=== PATIENT | male | born 1945 | race Caucasian/White ===

== ENCOUNTER 2018-07-23 10:22 | Observation (INO) | payer MEDICARE, BC ==
--- NOTE | 2018-07-23 10:55 | EDM.PDOC ---
ED HPI GENERAL MEDICAL PROBLEM - General Chief Complaint: Gastrointestinal Problem Stated Complaint: BLOOD IN STOOL SENT BY DR WOODS Time Seen by Provider: 07/23/18 10:44 Source of Information: Reports: Patient, Provider (Dr. Arango), RN Notes Reviewed History Limitations: Reports: No Limitations - History of Present Illness INITIAL COMMENTS - FREE TEXT/NARRATIVE: I was called by Dr. Arango, who informed me that he was sending the patient to the ED to be admitted to the hospital. The patient presented to his office with a 3-day history of bright red blood per rectum. He stated that the patient had been seen at the walk-in clinic on 07/21/2018, but that nothing had been done. The patient's blood pressure in Dr. Arango's office was good. The patient is on Coumadin for a mechanical mitral valve replacement and paroxysmal atrial fibrillation. Hemoglobin today is 11.5. Dr. Arango would like the patient to be admitted overnight, possibly given vitamin K with Lovenox for anticoagulation, then undergo a colonoscopy in the morning. The patient largely confirms the story provided by Dr. Arango, telling me that he developed bloody diarrhea on 07/20/2018, at that he has not had any bloody bowel movements since yesterday morning, 07/22/2018. All of his episodes have been painless, and he has not suffered any lightheadedness, even when upright. No prior similar symptoms. No recent fever. No recent urinary symptoms. The patient has never undergone a colonoscopy. Dr. Arango had told me that the patient had refused prior recommendations. Paperwork sent over from Dr. Arango's office includes a CBC with a WBC of 12.9, H/H of 11.5/35.5 and Plts 190. A BMP had a Na of 145, K 4.0, Cl 106, HCO3 29, Glu 128. The patient's PCP is Dr. Young Arango. - Related Data Allergies Allergy/AdvReac Type Severity Reaction Status Date / Time No Known Allergies Allergy Verified 07/23/18 10:34 Home Meds: Home Meds Allopurinol [Zyloprim] 300 mg PO DAILY 07/23/18 [History] Aspirin [Halfprin] 81 mg PO DAILY 07/23/18 [History] Diltiazem HCl [Cartia Xt] 120 mg PO BID 07/23/18 [History] Furosemide 40 mg PO BID 07/23/18 [History] Lisinopril 10 mg PO BID 07/23/18 [History] Metoprolol Tartrate 12.5 mg PO BID 07/23/18 [History] Warfarin [Coumadin] 2.5 mg PO ASDIRECTED 07/23/18 [History] Warfarin [Coumadin] 5 mg PO DAILY 07/23/18 [History] atorvaSTATin [Lipitor] 5 mg PO DAILY 07/23/18 [History] metFORMIN [Glucophage XR] 500 mg PO DAILY 07/23/18 [History] Past Medical History Cardiovascular History: Reports: Afib (paroxysmal), High Cholesterol, Hypertension, Other (See Below) (Rheumatic fever as a child) Musculoskeletal History: Reports: Gout (suspected, not confirmed) Endocrine/Metabolic History: Reports: Diabetes, Type II - Past Surgical History HEENT Surgical History: Reports: Cataract Surgery Cardiovascular Surgical History: Reports: Valve Replacement (mechanical mitral valve 11/01/2011), Other (See Below) (Tricuspid valve annulus repair) Social & Family History - Tobacco Use Smoking Status *Q: Former Smoker Years of Tobacco use: 41 Packs/Tins Daily: 2 Month/Year Tobacco Last Used: Quit 2004 - Alcohol Use Alcohol Use History: Yes Alcohol Use Frequency: Socially - Recreational Drug Use Recreational Drug Use: No - Living Situation & Occupation Living situation: Reports: , with Spouse Occupation: Retired ED ROS GENERAL - Review of Systems Review Of Systems: ROS reveals no pertinent complaints other than HPI. ED EXAM, GI/ABD - Physical Exam Exam: See Below Exam Limited By: No Limitations General Appearance: Alert, WD/WN, No Apparent Distress Eyes: Bilateral: Normal Appearance, EOMI Ears: Normal External Exam, Hearing Grossly Normal Nose: Normal Inspection Throat/Mouth: Normal Inspection, Normal Lips, Normal Voice, No Airway Compromise Head: Atraumatic, Normocephalic Neck: Normal Inspection, Full Range of Motion Respiratory/Chest: No Respiratory Distress, Lungs Clear, Normal Breath Sounds, No Accessory Muscle Use Cardiovascular: Normal Peripheral Pulses, Regular Rate, Rhythm, No Edema, No Gallop, No JVD, No Murmur, No Rub GI/Abdominal Exam: Normal Bowel Sounds, Soft, Non-Tender, No Organomegaly, No Distention, No Abnormal Bruit, No Mass (Male) Exam: Deferred Rectal (Males) Exam: Normal Rectal Tone, Bloody Stool (maroon), Heme + Stool, Hemorrhoids (small, non-thrombosed) Back Exam: Normal Inspection, Full Range of Motion, NT Extremities: Normal Inspection, Normal Range of Motion, No Pedal Edema, Normal Capillary Refill Neurological: Alert, Oriented, Normal Cognition, No Motor/Sensory Deficits Psychiatric: Normal Affect Skin Exam: Warm, Dry, Intact, Normal Color, No Rash Course - Vital Signs Last Recorded V/S: Last Vital Signs Temp 36.7 C 07/23/18 10:35 Pulse 52 L 07/23/18 10:35 Resp 16 07/23/18 10:35 BP 134/74 07/23/18 10:35 Pulse Ox 95 07/23/18 10:35 Orthostatic Blood Pressure [ 121/66 Standing] Orthostatic Blood Pressure [ 134/74 Sitting] - Orders/Labs/Meds Orders: Active Orders 24 hr Category Date Time Status Orthostatic Vital Signs [RC] STAT Care 07/23/18 10:49 Active - Re-Assessments/Exams Free Text/Narrative Re-Assessment/Exam: 07/23/18 10:55 The patient is not orthostatic. 07/23/18 11:[address] Bourne is on rounds. She will come by the ED once they are finished. 07/23/18 11:[address] Bourne here in the ED at 11:45. She accepted the patient for placement into observation with telemetry. Departure - Departure Time of Disposition: 11:48 Disposition: Refer to Observation Condition: Fair Clinical Impression: Lower GI bleed - Discharge Information *PRESCRIPTION DRUG MONITORING PROGRAM REVIEWED*: Not Applicable *COPY OF PRESCRIPTION DRUG MONITORING REPORT IN PATIENT EVELYN: Not Applicable Referrals: Garry Arango MD [Primary Care Provider] - Forms: ED Department Discharge - My Orders Last 24 Hours: My Active Orders 07/23/18 10:49 Orthostatic Vital Signs [RC] STAT - Assessment/Plan Last 24 Hours: My Active Orders 07/23/18 10:49 Orthostatic Vital Signs [RC] STAT
--- NOTE | 2018-07-23 12:59 | PCM.HP ---
H&P History of Present Illness - General Date of Service: 07/23/18 Admit Problem/Dx: Admission Diagnosis/Problem Admission Diagnosis/Problem Gastrointestinal hemorrhage Source of Information: Provider History Limitations: Reports: No Limitations - History of Present Illness Initial Comments - Free Text/Narative: 72 year old male seen in the clinic twice this week with a complaint of bloody diarrhea. He is on Coumadin for a mechanical MV and PAF. He has had dizziness , lightheadedness, but no CP or CP. The patient has declined a colonoscopy in the past. Paperwork sent over from Dr. Arango's office includes a CBC with a WBC of 12.9, H/H of 11.5/35.5 and Plts 190. A BMP had a Na of 145, K 4.0, Cl 106 , HCO3 29, Glu 128. The patient's PCP is Dr. Young Arango; full code. A gen surg consult was requested. He will be on a clear liquid diet/Golytely prep for colonoscopy TBD on 07/24/18. Symptom Onset Date: 07/20/18 Duration of Symptoms: Reports: Day(s):, Getting Worse Location: Reports: Abdomen Quality: Reports: Same as Previous Episode Severity: Moderate Improves with: Reports: Medication Worsens with: Reports: None Associated Symptoms: Reports: Weakness - Related Data Allergies/Adverse Reactions: Allergies Allergy/AdvReac Type Severity Reaction Status Date / Time No Known Allergies Allergy Verified 07/23/18 15:01 Home Medications: Home Meds Allopurinol [Zyloprim] 300 mg PO DAILY 07/23/18 [History] Aspirin [Halfprin] 81 mg PO DAILY 07/23/18 [History] Diltiazem HCl [Cartia Xt] 120 mg PO BID 07/23/18 [History] Furosemide 40 mg PO BID 07/23/18 [History] Lisinopril 10 mg PO BID 07/23/18 [History] Metoprolol Tartrate 12.5 mg PO BID 07/23/18 [History] Potassium Chloride 10 meq PO DAILY 07/23/18 [History] Warfarin Sodium [Jantoven] 5 mg PO ASDIRECTED 07/23/18 [History] Warfarin Sodium [Jantoven] 7.5 mg PO ASDIRECTED 07/23/18 [History] atorvaSTATin [Lipitor] 5 mg PO DAILY 07/23/18 [History] metFORMIN [Glucophage XR] 500 mg PO DAILY 07/23/18 [History] Past Medical History HEENT History: Reports: Cataract, Hard of Hearing, Impaired Vision Cardiovascular History: Reports: Afib (paroxysmal), High Cholesterol, Hypertension, Other (See Below) (Rheumatic fever as a child) Musculoskeletal History: Reports: Gout (suspected, not confirmed) Endocrine/Metabolic History: Reports: Diabetes, Type II - Past Surgical History HEENT Surgical History: Reports: Cataract Surgery Cardiovascular Surgical History: Reports: Valve Replacement (mechanical mitral valve 11/01/2011), Other (See Below) (Tricuspid valve annulus repair) Social & Family History - Tobacco Use Smoking Status *Q: Former Smoker Years of Tobacco use: 41 Packs/Tins Daily: 2 Used Tobacco, but Quit: Yes Month/Year Tobacco Last Used: Quit 2004 - Caffeine Use Caffeine Use: Reports: Coffee - Recreational Drug Use Recreational Drug Use: No - Living Situation & Occupation Living situation: Reports: , with Spouse Occupation: Retired H&P Review of Systems - Review of Systems: Review Of Systems: See Below General: Reports: Weakness HEENT: Reports: No Symptoms Pulmonary: Reports: No Symptoms Cardiovascular: Reports: Palpitations, Lightheadedness Gastrointestinal: Reports: Bloody Stool Genitourinary: Reports: No Symptoms Musculoskeletal: Reports: No Symptoms Skin: Reports: No Symptoms Psychiatric: Reports: No Symptoms Neurological: Reports: Dizziness Hematologic/Lymphatic: Reports: Easy Bleeding Immunologic: Reports: No Symptoms Exam - Exam Exam: See Below - Vital Signs Vital Signs: Last Vital Signs Temp 36.7 C 07/23/18 10:35 Pulse 52 L 07/23/18 10:35 Resp 16 07/23/18 10:35 BP 134/74 07/23/18 10:35 Pulse Ox 95 07/23/18 10:35 Orthostatic Blood Pressure [ 121/66 Standing] Orthostatic Blood Pressure [ 134/74 Sitting] - Exam Quality Assessment: DVT Prophylaxis General: Alert, Oriented, Cooperative HEENT: Conjunctiva Clear, EOMI, Hearing Intact, Nares Patent, Normal Nasal Septum, Pupils Equal, Pupils Reactive, PERRLA Neck: Trachea Midline Lungs: Normal Respiratory Effort Cardiovascular: Regular Rate GI/Abdominal Exam: Normal Bowel Sounds, Soft, Non-Tender, No Organomegaly, No Distention (Male) Exam: Deferred Rectal (Males) Exam: Deferred Back Exam: Normal Inspection Extremities: Normal Inspection, Non-Tender, Normal Capillary Refill Skin: Warm Neurological: Cranial Nerves Intact Neuro Extensive - Mental Status: Alert, Oriented x3, Normal Mood/Affect, Normal Cognition, Memory Intact Neuro Extensive - Motor, Sensory, Reflexes: CN II-XII Intact Psychiatric: Alert Problem List Initiated/Reviewed/Updated: Yes Orders Last 24hrs: Active Orders 24 hr Category Date Time Status Admission Status [Patient Status] [ADT] Routine ADT 07/23/18 12:16 Active Assessment/Plan Comment:: Impression: Acute GI bleed, on Coumadin for MVR/A Fib Chronic HTN HLD DM type II Plan: NPO after MN Clear liquids Golytely Home meds Daily Labs Gen Surg consult DVT/GI prophylaxis Obs with tele
[2018-07-23] MEDS ORDERED: Polyethylene Glycol/Electrolytes 4,000 ML Bottle PO ONE ×2 (13:01→17:00)
[2018-07-23] MEDS ORDERED: Temazepam 7.5 MG Cap PO PRN (19:49)
[2018-07-23] MEDS ORDERED: 50% Dextrose in Water 50 ML Syringe IVPUSH PRN (19:59)
[2018-07-23] MEDS: Metoprolol Tartrate 25 MG Tab*PT OWN MED PO SCH (20:52)
[2018-07-23] MEDS: CARTIA XT 120 MG PO SCH (20:52)
[2018-07-23] MEDS ORDERED: Diltiazem 120 MG Cap.CD PO SCH (21:00)
[2018-07-23] MEDS ORDERED: Phytonadione ORAL 2.5mg/2.5ml Soln Simple Syrup U/D PO ONE (21:33)
[2018-07-23] MEDS: Insulin Lispro 100 Units/ML 3 ML Vial SUBCUT SCH (22:00)
[2018-07-24] MEDS: Insulin Lispro 100 Units/ML 3 ML Vial SUBCUT SCH ×4 (07:08→22:28)
[2018-07-24 07:13] LABS: HEMOGLOBIN A1C 6.3 % (4.50-6.20)
[2018-07-24] MEDS ORDERED: Lidocaine 1% 6 ML ONE (08:09)
[2018-07-24] MEDS ORDERED: Propofol 200 MG/20 ML SDV ONE (08:10)
[2018-07-24] MEDS ORDERED: Phytonadione ORAL 2.5mg/2.5ml Soln Simple Syrup U/D PO ONE (09:11)
--- NOTE | 2018-07-24 09:26 | PCM.PREANE ---
Preanesthetic Assessment - Anesthesia/Transfusion/Family Hx Anesthesia History: Prior Anesthesia Without Reaction Family History of Anesthesia Reaction: No Transfusion History: No Prior Transfusion(s) Intubation History: Unknown - Review of Systems General: No Symptoms Pulmonary: No Symptoms (quit smoking 2004) Cardiovascular: No Symptoms (History of HTN, paroxysmal A-Fib, Mechanical valve replacement 2011-on coumadin) Gastrointestinal: Diarrhea (bloody stools(diarrhea on Saturday) 07/20/2018) Neurological: No Symptoms (history of gout) Other: Reports: Easy Bleeding, Easy Bruising, Diabetes (am blood [id number]) - Physical Assessment NPO Status Date: 07/23/18 NPO Status Time: 23:59 Pulse: 67 O2 Sat by Pulse Oximetry: 90 Respiratory Rate: 18 Blood Pressure: 135/79 Temperature: 36.5 C Vital Signs: Last Vital Signs Temp 36.5 C 07/24/18 04:59 Pulse 67 07/24/18 04:59 Resp 18 07/24/18 04:59 BP 135/79 07/24/18 04:59 Pulse Ox 90 L 07/24/18 04:59 Orthostatic Blood Pressure [ 121/66 Standing] Orthostatic Blood Pressure [ 134/74 Sitting] Height: 1.83 m Weight: 104.689 kg ASA Class: 3 Mental Status: Alert & Oriented x3 Airway Class: Mallampati = 2 Dentition: Reports: Dentures (upper) Thyro-Mental Finger Breadths: 3 Mouth Opening Finger Breadths: 3 ROM/Head Extension: Full Lungs: Clear to Auscultation, Normal Respiratory Effort Cardiovascular: Regular Rate, Regular Rhythm, No Murmurs - Lab Values: Laboratory Last Values WBC 7.12 K/mm3 (4.23-9.07) 07/24/18 06:30 RBC 2.92 M/mm3 (4.63-6.08) L 07/24/18 06:30 Hgb 9.0 gm/L (13.7-17.5) L 07/24/18 06:30 Hct 28.8 % (40.1-51.0) L 07/24/18 06:30 MCV 98.6 fl (79.0-92.2) H 07/24/18 06:30 MCH 30.8 pg (25.7-32.2) 07/24/18 06:30 MCHC 31.3 g/dl (32.2-35.5) L 07/24/18 06:30 RDW Std Deviation 53.7 fL (35.1-43.9) H 07/24/18 06:30 Plt Count 169 K/mm3 (163-337) 07/24/18 06:30 MPV 9.1 fl (9.4-12.3) L 07/24/18 06:30 Neut % (Auto) 60.0 % (34.0-67.9) 07/24/18 06:30 Lymph % (Auto) 16.7 % (21.8-53.1) L 07/24/18 06:30 [place] % (Auto) 7.3 % (5.3-12.2) 07/24/18 06:30 Eos % (Auto) 14.9 (0.8-7.0) H 07/24/18 06:30 Baso % (Auto) 0.8 % (0.1-1.2) 07/24/18 06:30 Neut # (Auto) 4.27 K/mm3 (1.78-5.38) 07/24/18 06:30 Lymph # (Auto) 1.19 K/mm3 (1.32-3.57) L 07/24/18 06:30 [place] # (Auto) 0.52 K/mm3 (0.30-0.82) 07/24/18 06:30 Eos # (Auto) 1.06 K/mm3 (0.04-0.54) H 07/24/18 06:30 Baso # (Auto) 0.06 K/mm3 (0.01-0.08) 07/24/18 06:30 PT 37.4 SECONDS (9.5-12.1) H 07/24/18 06:30 INR 3.52 07/24/18 06:30 Sodium 145 mEq/L (136-145) 07/24/18 06:30 Potassium 3.7 mEq/L (3.5-5.1) 07/24/18 06:30 Chloride 108 mEq/L (98-107) H 07/24/18 06:30 Carbon Dioxide 27 mEq/L (21-32) 07/24/18 06:30 Anion Gap 13.7 (5-15) 07/24/18 06:30 BUN 18 mg/dL (7-18) 07/24/18 06:30 Creatinine 1.0 mg/dL (0.7-1.3) 07/24/18 06:30 Est Cr Clr Drug Dosing 75.44 mL/min 07/24/18 06:30 Estimated GFR (MDRD) > 60 mL/min (>60) 07/24/18 06:30 BUN/Creatinine Ratio 18.0 (14-18) 07/24/18 06:30 Glucose 126 mg/dL (80-115) H 07/24/18 06:30 POC Glucose 122 mg/dL (80-115) H 07/24/18 06:38 Hemoglobin A1c 6.30 % (4.50-6.20) H 07/24/18 06:30 Lactic Acid 0.8 mmol/L (0.4-2.0) 07/24/18 06:30 Calcium 8.2 mg/dL (8.5-10.1) L 07/24/18 06:30 Magnesium 2.0 mg/dl (1.8-2.4) 07/24/18 06:30 C-Reactive Protein 1.1 mg/dL (<1.0) H* 07/24/18 06:30 Labs reviewed and noted and within acceptable ranges to proceed with MAC anesthetic (Surgeon notified of elevated PT/INR and agrees to proceed. - Allergies Allergies/Adverse Reactions: Allergies Allergy/AdvReac Type Severity Reaction Status Date / Time No Known Allergies Allergy Verified 07/23/18 15:01 - Anesthesia Plan Pre-Op Medication Ordered: Beta Nima Beta Nima: Metoprolol Med Last Dose Date: 07/24/18 Med Last Dose Time: 09:46 - Acknowledgements Anesthesia Type Planned: MAC Pt an Appropriate Candidate for the Planned Anesthesia: Yes Alternatives and Risks of Anesthesia Discussed w Pt/Guardian: Yes Pt/Guardian Understands and Agrees with Anesthesia Plan: Yes PreAnesthesia Questionnaire HEENT History: Reports: Cataract, Hard of Hearing, Impaired Vision Cardiovascular History: Reports: Afib (paroxysmal), High Cholesterol, Hypertension, Other (See Below) (Rheumatic fever as a child) Musculoskeletal History: Reports: Gout (suspected, not confirmed) Endocrine/Metabolic History: Reports: Diabetes, Type II - Infectious Disease History Infectious Disease History: Reports: Chicken Pox, Measles, Mumps - Past Surgical History HEENT Surgical History: Reports: Cataract Surgery Cardiovascular Surgical History: Reports: Valve Replacement (mechanical mitral valve 11/01/2011), Other (See Below) (Tricuspid valve annulus repair) - SUBSTANCE USE Smoking Status *Q: Former Smoker Tobacco Use Within Last Twelve Months: Cigarettes Recreational Drug Use History: No - HOME MEDS Home Medications: Home Meds Allopurinol [Zyloprim] 300 mg PO DAILY 07/23/18 [History] Aspirin [Halfprin] 81 mg PO DAILY 07/23/18 [History] Diltiazem HCl [Cartia Xt] 120 mg PO BID 07/23/18 [History] Furosemide 40 mg PO BID 07/23/18 [History] Lisinopril 10 mg PO BID 07/23/18 [History] Metoprolol Tartrate 12.5 mg PO BID 07/23/18 [History] Potassium Chloride 10 meq PO DAILY 07/23/18 [History] Warfarin Sodium [Jantoven] 5 mg PO ASDIRECTED 07/23/18 [History] Warfarin Sodium [Jantoven] 7.5 mg PO ASDIRECTED 07/23/18 [History] atorvaSTATin [Lipitor] 5 mg PO DAILY 07/23/18 [History] metFORMIN [Glucophage XR] 500 mg PO DAILY 07/23/18 [History] - CURRENT (IN HOUSE) MEDS Current Meds: Current Medications Allopurinol (Zyloprim) 300 mg PO DAILY [facility] Dextrose/Water (Dextrose 50% In Water) 50 ml IVPUSH ASDIRECTED PRN PRN Reason: Hypoglycemia Insulin Human Lispro (Humalog) 0 unit SUBCUT QIDACANDBED [facility]; Protocol Last Admin: 07/24/18 07:08 Dose: Not Given Metoprolol Tartrate (Lopressor) 12.5 mg PO BID [facility] Last Admin: 07/23/18 20:52 Dose: 12.5 mg Cartia Xt 120 Mg (Caps*Pt Own Med*) 0 each PO BID [facility] Last Admin: 07/23/18 20:52 Dose: 120 each Phytonadione (Aquamephyton) 5 mg PO ONETIME ONE Stop: 07/24/18 09:12 Temazepam (Restoril) 7.5 mg PO BEDTIME PRN PRN Reason: Insomnia Discontinued Medications Diltiazem HCl (Cardizem Cd) 120 mg PO BID [facility] Lidocaine HCl (Xylocaine-Mpf 1%) Confirm Administered Dose 6 mls @ as directed .ROUTE .STK-MED ONE Stop: 07/24/18 08:10 Phytonadione (Aquamephyton) 5 mg PO ONETIME ONE Stop: 07/23/18 21:34 Last Admin: 07/23/18 21:56 Dose: 5 mg Polyethylene Glycol/Electrolytes (Golytely) 4,000 ml PO ONETIME ONE Stop: 07/23/18 13:02 Last Admin: 07/23/18 16:19 Dose: Not Given Polyethylene Glycol/Electrolytes (Golytely) 4,000 ml PO ONETIME ONE Stop: 07/23/18 17:01 Last Admin: 07/23/18 17:58 Dose: 4,000 ml Propofol (Diprivan 20 Ml) Confirm Administered Dose 200 mg .ROUTE .STK-MED ONE Stop: 07/24/18 08:11
[2018-07-24] MEDS: ALLOPURINOL 300 MG PO SCH (09:39)
[2018-07-24] MEDS: Metoprolol Tartrate 25 MG Tab*PT OWN MED PO SCH ×2 (09:46→22:21)
[2018-07-24] MEDS: CARTIA XT 120 MG PO SCH ×2 (09:47→22:25)
--- NOTE | 2018-07-24 12:17 | PCM.PN ---
- General Info Date of Service: 07/24/18 Functional Status: Reports: Tolerating Diet, Urinating - Review of Systems General: Reports: No Symptoms HEENT: Reports: No Symptoms Pulmonary: Reports: No Symptoms Cardiovascular: Reports: No Symptoms Gastrointestinal: Reports: No Symptoms Genitourinary: Reports: No Symptoms Musculoskeletal: Reports: No Symptoms Skin: Reports: No Symptoms Neurological: Reports: No Symptoms Psychiatric: Reports: No Symptoms - Patient Data Vitals - Most Recent: Last Vital Signs Temp 36.5 C 07/24/18 10:22 Pulse 67 07/24/18 10:22 Resp 18 07/24/18 10:22 BP 135/79 07/24/18 10:22 Pulse Ox 90 L 07/24/18 10:22 Orthostatic Blood Pressure [ 121/66 Standing] Orthostatic Blood Pressure [ 134/74 Sitting] Weight - Most Recent: 104.689 kg I&O - Last 24 Hours: Intake & Output 07/23/18 07/24/18 07/24/18 22:59 06:59 14:59 Intake Total 800 4500 Output Total 700 4425 Balance 100 75 Lab Results Last 24 Hours: Laboratory Results - last 24 hr 07/23/18 07/23/18 07/24/18 Range/Units 20:44 21:59 06:30 WBC 7.12 (4.23-9.07) K/mm3 RBC 2.92 L (4.63-6.08) M/mm3 Hgb 9.0 L (13.7-17.5) gm/L Hct 28.8 L (40.1-51.0) % MCV 98.6 H (79.0-92.2) fl MCH 30.8 (25.7-32.2) pg MCHC 31.3 L (32.2-35.5) g/dl RDW Std Deviation 53.7 H (35.1-43.9) fL Plt Count 169 (163-337) K/mm3 MPV 9.1 L (9.4-12.3) fl Neut % (Auto) 60.0 (34.0-67.9) % Lymph % (Auto) 16.7 L (21.8-53.1) % [place] % (Auto) 7.3 (5.3-12.2) % Eos % (Auto) 14.9 H (0.8-7.0) Baso % (Auto) 0.8 (0.1-1.2) % Neut # (Auto) 4.27 (1.78-5.38) K/mm3 Lymph # (Auto) 1.19 L (1.32-3.57) K/mm3 [place] # (Auto) 0.52 (0.30-0.82) K/mm3 Eos # (Auto) 1.06 H (0.04-0.54) K/mm3 Baso # (Auto) 0.06 (0.01-0.08) K/mm3 PT 38.7 H (9.5-12.1) SECONDS INR 3.64 Sodium (136-145) mEq/L Potassium (3.5-5.1) mEq/L Chloride (98-107) mEq/L Carbon Dioxide (21-32) mEq/L Anion Gap (5-15) BUN (7-18) mg/dL Creatinine (0.7-1.3) mg/dL Est Cr Clr Drug Dosing mL/min Estimated GFR (MDRD) (>60) mL/min BUN/Creatinine Ratio (14-18) Glucose (80-115) mg/dL POC Glucose 140 H (80-115) mg/dL Hemoglobin A1c (4.50-6.20) % Lactic Acid (0.4-2.0) mmol/L Calcium (8.5-10.1) mg/dL Magnesium (1.8-2.4) mg/dl C-Reactive Protein (<1.0) mg/dL 07/24/18 07/24/18 07/24/18 Range/Units 06:30 06:30 06:30 WBC (4.23-9.07) K/mm3 RBC (4.63-6.08) M/mm3 Hgb (13.7-17.5) gm/L Hct (40.1-51.0) % MCV (79.0-92.2) fl MCH (25.7-32.2) pg MCHC (32.2-35.5) g/dl RDW Std Deviation (35.1-43.9) fL Plt Count (163-337) K/mm3 MPV (9.4-12.3) fl Neut % (Auto) (34.0-67.9) % Lymph % (Auto) (21.8-53.1) % [place] % (Auto) (5.3-12.2) % Eos % (Auto) (0.8-7.0) Baso % (Auto) (0.1-1.2) % Neut # (Auto) (1.78-5.38) K/mm3 Lymph # (Auto) (1.32-3.57) K/mm3 [place] # (Auto) (0.30-0.82) K/mm3 Eos # (Auto) (0.04-0.54) K/mm3 Baso # (Auto) (0.01-0.08) K/mm3 PT 37.4 H (9.5-12.1) SECONDS INR 3.52 Sodium 145 (136-145) mEq/L Potassium 3.7 (3.5-5.1) mEq/L Chloride 108 H (98-107) mEq/L Carbon Dioxide 27 (21-32) mEq/L Anion Gap 13.7 (5-15) BUN 18 (7-18) mg/dL Creatinine 1.0 (0.7-1.3) mg/dL Est Cr Clr Drug Dosing 75.44 mL/min Estimated GFR (MDRD) > 60 (>60) mL/min BUN/Creatinine Ratio 18.0 (14-18) Glucose 126 H (80-115) mg/dL POC Glucose (80-115) mg/dL Hemoglobin A1c (4.50-6.20) % Lactic Acid 0.8 (0.4-2.0) mmol/L Calcium 8.2 L (8.5-10.1) mg/dL Magnesium 2.0 (1.8-2.4) mg/dl C-Reactive Protein 1.1 H* (<1.0) mg/dL 07/24/18 07/24/18 07/24/18 Range/Units 06:30 06:38 11:08 WBC (4.23-9.07) K/mm3 RBC (4.63-6.08) M/mm3 Hgb (13.7-17.5) gm/L Hct (40.1-51.0) % MCV (79.0-92.2) fl MCH (25.7-32.2) pg MCHC (32.2-35.5) g/dl RDW Std Deviation (35.1-43.9) fL Plt Count (163-337) K/mm3 MPV (9.4-12.3) fl Neut % (Auto) (34.0-67.9) % Lymph % (Auto) (21.8-53.1) % [place] % (Auto) (5.3-12.2) % Eos % (Auto) (0.8-7.0) Baso % (Auto) (0.1-1.2) % Neut # (Auto) (1.78-5.38) K/mm3 Lymph # (Auto) (1.32-3.57) K/mm3 [place] # (Auto) (0.30-0.82) K/mm3 Eos # (Auto) (0.04-0.54) K/mm3 Baso # (Auto) (0.01-0.08) K/mm3 PT (9.5-12.1) SECONDS INR Sodium (136-145) mEq/L Potassium (3.5-5.1) mEq/L Chloride (98-107) mEq/L Carbon Dioxide (21-32) mEq/L Anion Gap (5-15) BUN (7-18) mg/dL Creatinine (0.7-1.3) mg/dL Est Cr Clr Drug Dosing mL/min Estimated GFR (MDRD) (>60) mL/min BUN/Creatinine Ratio (14-18) Glucose (80-115) mg/dL POC Glucose 122 H 120 H (80-115) mg/dL Hemoglobin A1c 6.30 H (4.50-6.20) % Lactic Acid (0.4-2.0) mmol/L Calcium (8.5-10.1) mg/dL Magnesium (1.8-2.4) mg/dl C-Reactive Protein (<1.0) mg/dL Med Orders - Current: Current Medications Allopurinol (Zyloprim) 300 mg PO DAILY [facility] Last Admin: 07/24/18 09:39 Dose: Not Given Dextrose/Water (Dextrose 50% In Water) 50 ml IVPUSH ASDIRECTED PRN PRN Reason: Hypoglycemia Insulin Human Lispro (Humalog) 0 unit SUBCUT QIDACANDBED [facility]; Protocol Last Admin: 07/24/18 07:08 Dose: Not Given Metoprolol Tartrate (Lopressor) 12.5 mg PO BID [facility] Last Admin: 07/24/18 09:46 Dose: 12.5 mg Cartia Xt 120 Mg (Caps*Pt Own Med*) 0 each PO BID [facility] Last Admin: 07/24/18 09:47 Dose: 1 each Temazepam (Restoril) 7.5 mg PO BEDTIME PRN PRN Reason: Insomnia Discontinued Medications Diltiazem HCl (Cardizem Cd) 120 mg PO BID [facility] Lidocaine HCl (Xylocaine-Mpf 1%) Confirm Administered Dose 6 mls @ as directed .ROUTE .STK-MED ONE Stop: 07/24/18 08:10 Phytonadione (Aquamephyton) 5 mg PO ONETIME ONE Stop: 07/23/18 21:34 Last Admin: 07/23/18 21:56 Dose: 5 mg Phytonadione (Aquamephyton) 5 mg PO ONETIME ONE Stop: 07/24/18 09:12 Last Admin: 07/24/18 09:45 Dose: 5 mg Polyethylene Glycol/Electrolytes (Golytely) 4,000 ml PO ONETIME ONE Stop: 07/23/18 13:02 Last Admin: 07/23/18 16:19 Dose: Not Given Polyethylene Glycol/Electrolytes (Golytely) 4,000 ml PO ONETIME ONE Stop: 07/23/18 17:01 Last Admin: 07/23/18 17:58 Dose: 4,000 ml Propofol (Diprivan 20 Ml) Confirm Administered Dose 200 mg .ROUTE .STK-MED ONE Stop: 07/24/18 08:11 - Exam Quality Assessment: DVT Prophylaxis General: Alert, Oriented, Cooperative, No Acute Distress HEENT: Pupils Equal, Pupils Reactive, EOMI Neck: No JVD Lungs: Clear to Auscultation, Normal Respiratory Effort Cardiovascular: Regular Rate, Murmurs GI/Abdominal Exam: Normal Bowel Sounds, Soft, Non-Tender, No Organomegaly, No Distention (Male) Exam: Deferred Back Exam: Normal Inspection Extremities: Normal Inspection, Non-Tender, Normal Capillary Refill Skin: Warm Neurological: No New Focal Deficit Psy/Mental Status: Alert, Normal Affect, Normal Mood - Problem List Review Problem List Initiated/Reviewed/Updated: Yes - My Orders Last 24 Hours: My Active Orders 07/23/18 13:22 Consult to Physician [CONS] Routine 07/23/18 13:23 Notify Provider Consults [RC] ASDIRECTED 07/23/18 15:03 Resuscitation Status Routine 07/23/18 19:49 Temazepam [Restoril] 7.5 mg PO BEDTIME PRN 07/23/18 19:57 Antiembolic Devices [RC] QSHIFT TORIBIO Hose [Antiembolic Hose] [OM.PC] Routine 07/23/18 19:59 Accu Check [Blood Glucose Check, Bedside] [RC] Q6HR Dextrose 50% in Water 50 ml IVPUSH ASDIRECTED PRN 07/23/18 21:00 Metoprolol Tartrate [Lopressor] 12.5 mg PO BID Patient's Own Medication [Ptom] 0 each PO BID 07/23/18 22:00 Insulin Lispro [HumaLOG] See Protocol SUBCUT QIDACANDBED 07/23/18 Dinner NPO After Midnight [Nothing per Oral After Midnight Diet] [DIET] 07/24/18 09:00 Consult to Physical Therapy [PT Evaluation and Treatment] [CONS] Routine Allopurinol [Zyloprim] 300 mg PO DAILY 07/24/18 09:30 Consult to Occupational Therapy [OT Evaluation and Treatment] [CONS] Routine 07/24/18 10:00 Consult to Case Management/Us Administrative Law Judge [CONS] Routine 07/25/18 05:00 BMP [BASIC METABOLIC PANEL,BMP] [CHEM] DAILY CBC WITH AUTO DIFF [HEME] DAILY CRP [C-REACTIVE PROTEIN] [CHEM] DAILY MAGNESIUM [CHEM] DAILY 07/26/18 05:00 BMP [BASIC METABOLIC PANEL,BMP] [CHEM] DAILY CBC WITH AUTO DIFF [HEME] DAILY CRP [C-REACTIVE PROTEIN] [CHEM] DAILY MAGNESIUM [CHEM] DAILY 07/27/18 05:00 BMP [BASIC METABOLIC PANEL,BMP] [CHEM] DAILY CBC WITH AUTO DIFF [HEME] DAILY CRP [C-REACTIVE PROTEIN] [CHEM] DAILY MAGNESIUM [CHEM] DAILY - Plan Plan:: Impression: Acute GI bleed, on Coumadin for MVR/A Fib INR>3.0, given Vitamin K 5 mg x2 Periop, EGD/Colonoscopy; gastric ulcer at the lesser curvature; diverticulosis Chronic HTN HLD DM type II Plan: Full liquids Home meds Daily Labs DVT/GI prophylaxis Obs with tele
--- NOTE | 2018-07-24 12:18 | PCM48HPAN ---
Post Anesthesia Note - EVALUATION WITHIN 48HRS OF ANESTHETIC Vital Signs in Normal Range: Yes Patient Participated in Evaluation: Yes Respiratory Function Stable: Yes Airway Patent: Yes Cardiovascular Function Stable: Yes Hydration Status Stable: Yes Pain Control Satisfactory: Yes Nausea and Vomiting Control Satisfactory: Yes Mental Status Recovered: Yes Pulse Rate: 57 SaO2: 94 Resp Rate: 16 Temperature: 36.5 C Blood Pressure: 104/57
--- NOTE | 2018-07-24 15:22 | OR ---
DATE OF OPERATION: 07/23/2018 SURGEON: Alex Francis MD PREOPERATIVE DIAGNOSIS: Gastrointestinal bleed. POSTOPERATIVE DIAGNOSIS: Gastrointestinal bleed. OPERATION PERFORMED: Esophagogastroduodenoscopy and total colonoscopy. ANESTHESIA: MAC. SPECIMEN: None. OPERATIVE FINDINGS: Moderate-sized lesser curvature gastric ulcer, currently not bleeding. Colonoscopy with significant sigmoid diverticulosis. No other abnormalities. RECOMMENDATION: This patient is on warfarin for his mitral valve replacement and AFib. Certainly, for a while, he would not tolerate anticoagulation at least especially with an INR up above the 5.5 range, which he currently is at. Probably get a consult from his Cardiovascular or Cardiology Clinic as to what to do with anticoagulation. INDICATION FOR PROCEDURE: This 72-year-old male was admitted through the emergency room with maroon bloody stools. He had a hemoglobin several months ago that was 15 and in the emergency room was 11.5. DESCRIPTION OF PROCEDURE: After adequate preparation, a gastroscope was inserted into the esophagus. This was passed down to the EG junction. He does have a small hiatal hernia, but no evidence of bleeding from the esophagus. The scope was advanced into the stomach. Both forward and retroflexed views were done. He had scant amount of retained blood within the stomach, but nothing actively bleeding. Examination did show an ulcer on the lesser curvature of the stomach in the midbody region. I did not biopsy this secondary to his INR being 3.5. This certainly looked like a benign typical gastric ulcer, however not an early carcinoma. The scope was advanced through the pylorus and the 1st and 2nd part of the duodenum were also normal. Photographs of the ulcer were taken. Air was suctioned from the stomach and the scope removed. I then proceeded with a total colonoscopy. He had a moderate amount of liquid blood still within the colon. This was mostly suctioned clear. He had moderate to significant sigmoid diverticulosis, otherwise no other abnormalities were noted. I was able to pass the scope all the way to the cecum and confirmation of the cecum was made by visualization of the ileocecal valve, palpation in the right lower quadrant, and the light shining through the right lower quadrant. I certainly did not find any large masses or polyps that would contribute to his bleeding and the entire colon had blood within it, old blood appearing, which I think would be indicative of the blood coming from the known gastric ulcer. Air was suctioned from the colon and the scope removed. ESTIMATED BLOOD LOSS: MMODAL /[id number]
[2018-07-25] MEDS: Insulin Lispro 100 Units/ML 3 ML Vial SUBCUT SCH ×4 (08:32→21:49)
[2018-07-25] MEDS: ALLOPURINOL 300 MG PO SCH (09:19)
[2018-07-25] MEDS: CARTIA XT 120 MG PO SCH ×2 (09:20→21:47)
[2018-07-25] MEDS: Metoprolol Tartrate 25 MG Tab*PT OWN MED PO SCH ×2 (09:21→21:46)
[2018-07-25] MEDS: Famotidine 20 MG Tab PO SCH (12:38)
--- NOTE | 2018-07-25 17:49 | PCM.PN ---
- General Info Date of Service: 07/25/18 Functional Status: Reports: Pain Controlled, Tolerating Diet, Urinating - Review of Systems General: Reports: No Symptoms HEENT: Reports: No Symptoms Pulmonary: Reports: No Symptoms Cardiovascular: Reports: No Symptoms Gastrointestinal: Reports: No Symptoms Genitourinary: Reports: No Symptoms Musculoskeletal: Reports: No Symptoms Skin: Reports: No Symptoms Neurological: Reports: No Symptoms Psychiatric: Reports: No Symptoms - Patient Data Vitals - Most Recent: Last Vital Signs Temp 36.7 C 07/25/18 12:17 Pulse 58 L 07/25/18 12:17 Resp 18 07/25/18 12:17 BP 127/67 07/25/18 12:17 Pulse Ox 94 L 07/25/18 12:17 Orthostatic Blood Pressure [ 121/66 Standing] Orthostatic Blood Pressure [ 134/74 Sitting] Weight - Most Recent: 103.238 kg I&O - Last 24 Hours: Intake & Output 07/25/18 07/25/18 07/25/18 06:59 14:59 22:59 Intake Total 450 600 Output Total 400 Balance 50 600 Lab Results Last 24 Hours: Laboratory Results - last 24 hr 07/24/18 07/25/18 07/25/18 Range/Units 22:24 05:51 05:51 WBC 6.88 (4.23-9.07) K/mm3 RBC 2.69 L (4.63-6.08) M/mm3 Hgb 8.1 L (13.7-17.5) gm/L Hct 26.9 L (40.1-51.0) % MCV 100.0 H (79.0-92.2) fl MCH 30.1 (25.7-32.2) pg MCHC 30.1 L (32.2-35.5) g/dl RDW Std Deviation 55.4 H (35.1-43.9) fL Plt Count 164 (163-337) K/mm3 MPV 8.8 L (9.4-12.3) fl Neut % (Auto) 57.3 (34.0-67.9) % Lymph % (Auto) 20.9 L (21.8-53.1) % [place] % (Auto) 6.7 (5.3-12.2) % Eos % (Auto) 14.0 H (0.8-7.0) Baso % (Auto) 0.7 (0.1-1.2) % Neut # (Auto) 3.94 (1.78-5.38) K/mm3 Lymph # (Auto) 1.44 (1.32-3.57) K/mm3 [place] # (Auto) 0.46 (0.30-0.82) K/mm3 Eos # (Auto) 0.96 H (0.04-0.54) K/mm3 Baso # (Auto) 0.05 (0.01-0.08) K/mm3 PT (9.5-12.1) SECONDS INR Sodium 143 (136-145) mEq/L Potassium 3.5 (3.5-5.1) mEq/L Chloride 108 H (98-107) mEq/L Carbon Dioxide 26 (21-32) mEq/L Anion Gap 12.5 (5-15) BUN 10 (7-18) mg/dL Creatinine 1.0 (0.7-1.3) mg/dL Est Cr Clr Drug Dosing 75.44 mL/min Estimated GFR (MDRD) > 60 (>60) mL/min BUN/Creatinine Ratio 10.0 L (14-18) Glucose 114 (80-115) mg/dL POC Glucose 105 (80-115) mg/dL Calcium 8.3 L (8.5-10.1) mg/dL Magnesium 2.0 (1.8-2.4) mg/dl C-Reactive Protein 0.9 (<1.0) mg/dL 07/25/18 07/25/18 07/25/18 Range/Units 05:51 07:02 10:47 WBC (4.23-9.07) K/mm3 RBC (4.63-6.08) M/mm3 Hgb (13.7-17.5) gm/L Hct (40.1-51.0) % MCV (79.0-92.2) fl MCH (25.7-32.2) pg MCHC (32.2-35.5) g/dl RDW Std Deviation (35.1-43.9) fL Plt Count (163-337) K/mm3 MPV (9.4-12.3) fl Neut % (Auto) (34.0-67.9) % Lymph % (Auto) (21.8-53.1) % [place] % (Auto) (5.3-12.2) % Eos % (Auto) (0.8-7.0) Baso % (Auto) (0.1-1.2) % Neut # (Auto) (1.78-5.38) K/mm3 Lymph # (Auto) (1.32-3.57) K/mm3 [place] # (Auto) (0.30-0.82) K/mm3 Eos # (Auto) (0.04-0.54) K/mm3 Baso # (Auto) (0.01-0.08) K/mm3 PT 16.4 H (9.5-12.1) SECONDS INR 1.52 Sodium (136-145) mEq/L Potassium (3.5-5.1) mEq/L Chloride (98-107) mEq/L Carbon Dioxide (21-32) mEq/L Anion Gap (5-15) BUN (7-18) mg/dL Creatinine (0.7-1.3) mg/dL Est Cr Clr Drug Dosing mL/min Estimated GFR (MDRD) (>60) mL/min BUN/Creatinine Ratio (14-18) Glucose (80-115) mg/dL POC Glucose 132 H 144 H (80-115) mg/dL Calcium (8.5-10.1) mg/dL Magnesium (1.8-2.4) mg/dl C-Reactive Protein (<1.0) mg/dL Med Orders - Current: Current Medications Allopurinol (Zyloprim) 300 mg PO DAILY [facility] Last Admin: 07/25/18 09:19 Dose: 300 mg Dextrose/Water (Dextrose 50% In Water) 50 ml IVPUSH ASDIRECTED PRN PRN Reason: Hypoglycemia Famotidine (Pepcid) 40 mg PO DAILY [facility] Last Admin: 07/25/18 12:38 Dose: 40 mg Insulin Human Lispro (Humalog) 0 unit SUBCUT QIDACANDBED [facility]; Protocol Last Admin: 07/25/18 12:33 Dose: Not Given Metoprolol Tartrate (Lopressor) 12.5 mg PO BID [facility] Last Admin: 07/25/18 09:21 Dose: 12.5 mg Cartia Xt 120 Mg (Caps*Pt Own Med*) 0 each PO BID [facility] Last Admin: 07/25/18 09:20 Dose: 1 each Sucralfate (Carafate) 1 gm PO QIDACANDBED [facility] Temazepam (Restoril) 7.5 mg PO BEDTIME PRN PRN Reason: Insomnia Warfarin Sodium (Pharmacy To Dose - Warfarin) 1 dose .XX ASDIRECTED [facility] Warfarin Sodium (Coumadin) 5 mg PO ONETIME ONE Stop: 07/25/18 18:01 Discontinued Medications Diltiazem HCl (Cardizem Cd) 120 mg PO BID [facility] Lidocaine HCl (Xylocaine-Mpf 1%) Confirm Administered Dose 6 mls @ as directed .ROUTE .STK-MED ONE Stop: 07/24/18 08:10 Phytonadione (Aquamephyton) 5 mg PO ONETIME ONE Stop: 07/23/18 21:34 Last Admin: 07/23/18 21:56 Dose: 5 mg Phytonadione (Aquamephyton) 5 mg PO ONETIME ONE Stop: 07/24/18 09:12 Last Admin: 07/24/18 09:45 Dose: 5 mg Polyethylene Glycol/Electrolytes (Golytely) 4,000 ml PO ONETIME ONE Stop: 07/23/18 13:02 Last Admin: 07/23/18 16:19 Dose: Not Given Polyethylene Glycol/Electrolytes (Golytely) 4,000 ml PO ONETIME ONE Stop: 07/23/18 17:01 Last Admin: 07/23/18 17:58 Dose: 4,000 ml Propofol (Diprivan 20 Ml) Confirm Administered Dose 200 mg .ROUTE .STK-MED ONE Stop: 07/24/18 08:11 - Exam Quality Assessment: DVT Prophylaxis General: Alert, Oriented, Cooperative, No Acute Distress HEENT: Pupils Equal, Pupils Reactive, EOMI Neck: Trachea Midline, No JVD Lungs: Normal Respiratory Effort Cardiovascular: Regular Rate, Regular Rhythm, Murmurs GI/Abdominal Exam: Normal Bowel Sounds, Soft, Non-Tender, No Organomegaly (Male) Exam: Deferred Back Exam: Normal Inspection Extremities: Normal Inspection, Non-Tender, Normal Capillary Refill Skin: Warm Neurological: No New Focal Deficit Psy/Mental Status: Alert, Normal Affect, Normal Mood - Problem List Review Problem List Initiated/Reviewed/Updated: Yes - My Orders Last 24 Hours: My Active Orders 07/24/18 23:10 Blood Glucose Check, Bedside [] WITHMEALSANDBED 07/25/18 11:00 Pharmacy to Dose - Warfarin 1 dose .XX ASDIRECTED 07/25/18 11:15 Famotidine [Pepcid] 40 mg PO DAILY 07/25/18 17:00 Sucralfate [Carafate] 1 gm PO QIDACANDBED 07/25/18 18:00 HEMOGLOBIN [HEME] Routine Warfarin [Coumadin] 5 mg PO ONETIME ONE 07/25/18 Lunch Heart Healthy Diet [DIET] 07/26/18 05:00 BMP [BASIC METABOLIC PANEL,BMP] [CHEM] DAILY CBC WITH AUTO DIFF [HEME] DAILY CRP [C-REACTIVE PROTEIN] [CHEM] DAILY MAGNESIUM [CHEM] DAILY 07/27/18 05:00 BMP [BASIC METABOLIC PANEL,BMP] [CHEM] DAILY CBC WITH AUTO DIFF [HEME] DAILY CRP [C-REACTIVE PROTEIN] [CHEM] DAILY MAGNESIUM [CHEM] DAILY - Plan Plan:: Impression: Acute GI bleed, on Coumadin for MVR/A Fib INR>3.0, given Vitamin K 5 mg x2 Periop, EGD/Colonoscopy; gastric ulcer at the lesser curvature; diverticulosis Chronic HTN HLD DM type II Plan: Resume Heart Healthy diet Resume Coumadin, INR goal 2.5 Cardiology appt needed. Home meds Daily Labs DVT/GI prophylaxis Obs with tele DC 07/26/18.
[2018-07-25] MEDS ORDERED: Warfarin 5 MG Tab PO ONE (18:00)
[2018-07-25] MEDS: Sucralfate Suspension 1 GM/10 ML Cup PO SCH ×2 (18:09→21:47)
[2018-07-26] MEDS: Sucralfate Suspension 1 GM/10 ML Cup PO SCH ×2 (06:50→11:00)
[2018-07-26] MEDS: Insulin Lispro 100 Units/ML 3 ML Vial SUBCUT SCH ×2 (08:03→11:21)
[2018-07-26] MEDS: Metoprolol Tartrate 25 MG Tab*PT OWN MED PO SCH (08:33)
[2018-07-26] MEDS: Famotidine 20 MG Tab PO SCH (08:33)
[2018-07-26] MEDS: CARTIA XT 120 MG PO SCH (08:34)
[2018-07-26] MEDS: ALLOPURINOL 300 MG PO SCH (08:34)
[2018-07-26] MEDS: Potassium Chloride 20 MEQ Tab.ER PO ONE ×2 (11:00→12:15)
[2018-07-26] MEDS ORDERED: Sodium Chloride 0.9% 250 ML ONE (11:05)
[2018-07-26] MEDS ORDERED: Sodium Chloride 0.9% 250 ML IV SCH (11:15)
--- NOTE | 2018-07-26 12:14 | PCM.DCSUM1 ---
Discharge Summary - Hospital Course Free Text/Narrative:: 72 year old male with PMH of MVR and TV annuloplasty presented with UGI bleed. Is S/P EGD/Colonoscopy has gastric ulcer at the lesser curvature. Had been seen by gen surg, Dr Amezquita during his hospitalization. After 48 hours received one unit of PRBCs followed by Lasix 20 mg IVP. Vitamin K was given prior to the procedure which was uneventful. See op report for full details, Coumadin was restarted for MVR which requires anticoagulation. INR goal has been adjusted for 2.5, less than 3.0. Hypokalemia has been addressed during and at discharge. Labs have been ordered for 07/29/18. Patient was educated on MVR/Coumadin in the setting of gastric ulcer. Dietary Anticoagulation limtations ADA, 2000 calorie heart healthy Meds Resume home meds, KCl has been adjusted and increased for 3 days, KCl 40 mEq for 3 days then restart 10 mEq unless directed differently by PCP Coumadin 5 mg q pm until INR rechecked on 07/29/18. Pepcid 40 mg daily Carafate 10 cc po QID as directed. Labs on 07/29/18 HgB/HCT, GI bleed post 1 unit PRBC INR after Vitamin K with GI bleed BMP, hypokalemia Follow up PCP, 1 week Cardiology, 2-4 weeks Gen surg, 2-4 weeks HPI Initial Comments: 72 year old male seen in the clinic twice this week with a complaint of bloody diarrhea. He is on Coumadin for a mechanical MV and PAF. He has had dizziness , lightheadedness, but no CP or CP. The patient has declined a colonoscopy in the past. Paperwork sent over from Dr. Arango's office includes a CBC with a WBC of 12.9, H/H of 11.5/35.5 and Plts 190. A BMP had a Na of 145, K 4.0, Cl 106 , HCO3 29, Glu 128. The patient's PCP is Dr. Young Arango; full code. A gen surg consult was requested. He will be on a clear liquid diet/Golytely prep for colonoscopy TBD on 07/24/28. Diagnosis: Stroke: No - Discharge Data Discharge Date: 07/26/18 Discharge Disposition: Home, Self-Care 01 Condition: Good - Discharge Diagnosis/Problem(s) (1) UGIB (upper gastrointestinal bleed) SNOMED Code(s): 31442454 ICD Code: K92.2 - GASTROINTESTINAL HEMORRHAGE, UNSPECIFIED Status: Acute (2) S/P MVR (mitral valve replacement) SNOMED Code(s): 6072970626910, 926249200, 9005866450263 ICD Code: Z95.2 - PRESENCE OF PROSTHETIC HEART VALVE Status: Acute (3) H/O tricuspid valve annuloplasty SNOMED Code(s): 108772362 ICD Code: Z98.890 - OTHER SPECIFIED POSTPROCEDURAL STATES Status: Acute (4) CAD (coronary artery disease) SNOMED Code(s): 53504075 ICD Code: I25.10 - ATHSCL HEART DISEASE OF [place] CORONARY ARTERY W/O ANG PCTRS Status: Acute (5) Hypertension SNOMED Code(s): 86403098 ICD Code: I10 - ESSENTIAL (PRIMARY) HYPERTENSION Status: Acute (6) Hyperlipidemia SNOMED Code(s): 94081233 ICD Code: E78.5 - HYPERLIPIDEMIA, UNSPECIFIED Status: Acute (7) Supratherapeutic INR SNOMED Code(s): 439541080 ICD Code: R79.1 - ABNORMAL COAGULATION PROFILE Status: Acute (8) Diabetes mellitus type 2 in nonobese SNOMED Code(s): 795072940 ICD Code: E11.9 - TYPE 2 DIABETES MELLITUS WITHOUT COMPLICATIONS Status: Acute - Patient Summary/Data Consults: Consultations 07/23/18 13:22 Consult to Physician [CONS] Routine 07/24/18 09:00 Consult to Physical Therapy [PT Evaluation and Treatment] [CONS] Routine 07/24/18 09:30 Consult to Occupational Therapy [OT Evaluation and Treatment] [CONS] Routine 07/24/18 10:00 Consult to Case Management/[employer] [CONS] Routine Hospital Course: Will need close follow up for UGI bleed with MVR that requires Coumadin. This was explained to the patient in detail. INR lower that 3 but higher than 2.5 is needed. See narrative for overview of hospital stay. - Patient Instructions Diet: Usual Diet as Tolerated (ADA 2000; Heart Healthy) Activity: As Tolerated Driving: Do Not Drive (ok to drive 24 hours after DC) Showering/Bathing: May Shower Notify Provider of: Fever, Increased Pain, Nausea and/or Vomiting - Discharge Plan *PRESCRIPTION DRUG MONITORING PROGRAM REVIEWED*: Not Applicable *COPY OF PRESCRIPTION DRUG MONITORING REPORT IN PATIENT EVELYN: Not Applicable Prescriptions/Med Rec: Famotidine [Pepcid] 40 mg PO DAILY #30 tablet Potassium Chloride [Klor-Con 10] 40 meq PO DAILY #3 tab.er Sucralfate [Carafate] 1 gm PO QIDACANDBED #320 cup Home Medications: Home Meds Allopurinol [Zyloprim] 300 mg PO DAILY 07/23/18 [History] Aspirin [Halfprin] 81 mg PO DAILY 07/23/18 [History] Diltiazem HCl [Cartia Xt] 120 mg PO BID 07/23/18 [History] Furosemide 40 mg PO BID 07/23/18 [History] Lisinopril 10 mg PO BID 07/23/18 [History] Metoprolol Tartrate 12.5 mg PO BID 07/23/18 [History] atorvaSTATin [Lipitor] 5 mg PO DAILY 07/23/18 [History] metFORMIN [Glucophage XR] 500 mg PO DAILY 07/23/18 [History] Famotidine [Pepcid] 40 mg PO DAILY #30 tablet 07/26/18 [Rx] Potassium Chloride 10 meq PO DAILY #0 07/26/18 [Rx] Potassium Chloride [Klor-Con 10] 40 meq PO DAILY #3 tab.er 07/26/18 [Rx] Sucralfate [Carafate] 1 gm PO QIDACANDBED #320 cup 07/26/18 [Rx] Warfarin Sodium [Jantoven] 5 mg PO ASDIRECTED #0 07/26/18 [Rx] Oxygen Therapy Mode: Room Air Patient Handouts: Upper Gastrointestinal Bleeding Referrals: Garry Arango MD [Primary Care Provider] - (Please call on Saturday and schedule a follow-up appointment with your primary care provider Dr. Arango.) - Discharge Summary/Plan Comment DC Time >30 min.: Yes (prolonged discussion re: Coumadin/diet/follow up) Discharge Summary/Plan Comment: Impression: Acute GI bleed, on Coumadin for MVR/A Fib INR>3.0, given Vitamin K 5 mg x2 Periop, EGD/Colonoscopy; gastric ulcer at the lesser curvature; diverticulosis Supratherapeutic INR, S/P vitamin K Electrolyte abnormalities. Chronic HTN HLD DM type II on Metformin Plan: Resume Heart Healthy diet/ Resume Coumadin, INR goal 2.5 Cardiology appt needed. Home meds Daily Labs DVT/GI prophylaxis Obs with tele DC 07/26/18. - General Info Functional Status: Reports: Pain Controlled, Tolerating Diet, Ambulating, Urinating - Review of Systems General: Reports: No Symptoms HEENT: Reports: No Symptoms Pulmonary: Reports: No Symptoms Cardiovascular: Reports: No Symptoms Gastrointestinal: Reports: No Symptoms Genitourinary: Reports: No Symptoms Musculoskeletal: Reports: No Symptoms Skin: Reports: No Symptoms Neurological: Reports: No Symptoms Psychiatric: Reports: No Symptoms - Patient Data Vitals - Most Recent: Last Vital Signs Temp 36.9 C 07/26/18 11:32 Pulse 58 L 07/26/18 11:32 Resp 16 07/26/18 11:32 BP 106/57 L 07/26/18 11:32 Pulse Ox 93 L 07/26/18 11:32 Orthostatic Blood Pressure [ 121/66 Standing] Orthostatic Blood Pressure [ 134/74 Sitting] Weight - Most Recent: 102.875 kg I&O - Last 24 hours: Intake & Output 07/25/18 07/26/18 07/26/18 22:59 06:59 14:59 Intake Total 890 250 300 Output Total 850 600 Balance 40 -350 300 Lab Results - Last 24 hrs: Laboratory Results - last 24 hr 07/25/18 07/25/18 07/25/18 Range/Units 05:51 17:44 20:20 WBC (4.23-9.07) K/mm3 RBC (4.63-6.08) M/mm3 Hgb 8.3 L (13.7-17.5) gm/L Hct (40.1-51.0) % MCV (79.0-92.2) fl MCH (25.7-32.2) pg MCHC (32.2-35.5) g/dl RDW Std Deviation (35.1-43.9) fL Plt Count (163-337) K/mm3 MPV (9.4-12.3) fl Neut % (Auto) (34.0-67.9) % Lymph % (Auto) (21.8-53.1) % Lyon % (Auto) (5.3-12.2) % Eos % (Auto) (0.8-7.0) Baso % (Auto) (0.1-1.2) % Neut # (Auto) (1.78-5.38) K/mm3 Lymph # (Auto) (1.32-3.57) K/mm3 Lyon # (Auto) (0.30-0.82) K/mm3 Eos # (Auto) (0.04-0.54) K/mm3 Baso # (Auto) (0.01-0.08) K/mm3 Manual Slide Review PT 16.4 H (9.5-12.1) SECONDS INR 1.52 Sodium (136-145) mEq/L Potassium (3.5-5.1) mEq/L Chloride (98-107) mEq/L Carbon Dioxide (21-32) mEq/L Anion Gap (5-15) BUN (7-18) mg/dL Creatinine (0.7-1.3) mg/dL Est Cr Clr Drug Dosing mL/min Estimated GFR (MDRD) (>60) mL/min BUN/Creatinine Ratio (14-18) Glucose (80-115) mg/dL POC Glucose 111 (80-115) mg/dL Calcium (8.5-10.1) mg/dL Magnesium (1.8-2.4) mg/dl C-Reactive Protein (<1.0) mg/dL Blood Type Gel Antibody Screen Crossmatch 07/25/18 07/26/18 07/26/18 Range/Units 21:09 05:34 05:34 WBC 7.32 (4.23-9.07) K/mm3 RBC 2.70 L (4.63-6.08) M/mm3 Hgb 8.4 L (13.7-17.5) gm/L Hct 27.2 L (40.1-51.0) % MCV 100.7 H (79.0-92.2) fl MCH 31.1 (25.7-32.2) pg MCHC 30.9 L (32.2-35.5) g/dl RDW Std Deviation 56.2 H (35.1-43.9) fL Plt Count 173 (163-337) K/mm3 MPV 8.8 L (9.4-12.3) fl Neut % (Auto) 54.4 (34.0-67.9) % Lymph % (Auto) 19.4 L (21.8-53.1) % Lyon % (Auto) 8.3 (5.3-12.2) % Eos % (Auto) 16.7 H (0.8-7.0) Baso % (Auto) 0.8 (0.1-1.2) % Neut # (Auto) 3.98 (1.78-5.38) K/mm3 Lymph # (Auto) 1.42 (1.32-3.57) K/mm3 Lyon # (Auto) 0.61 (0.30-0.82) K/mm3 Eos # (Auto) 1.22 H (0.04-0.54) K/mm3 Baso # (Auto) 0.06 (0.01-0.08) K/mm3 Manual Slide Review Abnormal smear PT (9.5-12.1) SECONDS INR Sodium 143 (136-145) mEq/L Potassium 3.3 L (3.5-5.1) mEq/L Chloride 108 H (98-107) mEq/L Carbon Dioxide 26 (21-32) mEq/L Anion Gap 12.3 (5-15) BUN 11 (7-18) mg/dL Creatinine 1.1 (0.7-1.3) mg/dL Est Cr Clr Drug Dosing 68.59 mL/min Estimated GFR (MDRD) > 60 (>60) mL/min BUN/Creatinine Ratio 10.0 L (14-18) Glucose 131 H (80-115) mg/dL POC Glucose 138 H (80-115) mg/dL Calcium 8.1 L (8.5-10.1) mg/dL Magnesium 1.9 (1.8-2.4) mg/dl C-Reactive Protein 1.0 (<1.0) mg/dL Blood Type Gel Antibody Screen Crossmatch 07/26/18 07/26/18 07/26/18 Range/Units 05:34 05:34 06:36 WBC (4.23-9.07) K/mm3 RBC (4.63-6.08) M/mm3 Hgb (13.7-17.5) gm/L Hct (40.1-51.0) % MCV (79.0-92.2) fl MCH (25.7-32.2) pg MCHC (32.2-35.5) g/dl RDW Std Deviation (35.1-43.9) fL Plt Count (163-337) K/mm3 MPV (9.4-12.3) fl Neut % (Auto) (34.0-67.9) % Lymph % (Auto) (21.8-53.1) % Lyon % (Auto) (5.3-12.2) % Eos % (Auto) (0.8-7.0) Baso % (Auto) (0.1-1.2) % Neut # (Auto) (1.78-5.38) K/mm3 Lymph # (Auto) (1.32-3.57) K/mm3 Lyon # (Auto) (0.30-0.82) K/mm3 Eos # (Auto) (0.04-0.54) K/mm3 Baso # (Auto) (0.01-0.08) K/mm3 Manual Slide Review PT 12.9 H (9.5-12.1) SECONDS INR 1.19 Sodium (136-145) mEq/L Potassium (3.5-5.1) mEq/L Chloride (98-107) mEq/L Carbon Dioxide (21-32) mEq/L Anion Gap (5-15) BUN (7-18) mg/dL Creatinine (0.7-1.3) mg/dL Est Cr Clr Drug Dosing mL/min Estimated GFR (MDRD) (>60) mL/min BUN/Creatinine Ratio (14-18) Glucose (80-115) mg/dL POC Glucose 132 H (80-115) mg/dL Calcium (8.5-10.1) mg/dL Magnesium (1.8-2.4) mg/dl C-Reactive Protein (<1.0) mg/dL Blood Type O POSITIVE Gel Antibody Screen Negative Crossmatch See Detail 07/26/18 Range/Units 10:58 WBC (4.23-9.07) K/mm3 RBC (4.63-6.08) M/mm3 Hgb (13.7-17.5) gm/L Hct (40.1-51.0) % MCV (79.0-92.2) fl MCH (25.7-32.2) pg MCHC (32.2-35.5) g/dl RDW Std Deviation (35.1-43.9) fL Plt Count (163-337) K/mm3 MPV (9.4-12.3) fl Neut % (Auto) (34.0-67.9) % Lymph % (Auto) (21.8-53.1) % Lyon % (Auto) (5.3-12.2) % Eos % (Auto) (0.8-7.0) Baso % (Auto) (0.1-1.2) % Neut # (Auto) (1.78-5.38) K/mm3 Lymph # (Auto) (1.32-3.57) K/mm3 [place] # (Auto) (0.30-0.82) K/mm3 Eos # (Auto) (0.04-0.54) K/mm3 Baso # (Auto) (0.01-0.08) K/mm3 Manual Slide Review PT (9.5-12.1) SECONDS INR Sodium (136-145) mEq/L Potassium (3.5-5.1) mEq/L Chloride (98-107) mEq/L Carbon Dioxide (21-32) mEq/L Anion Gap (5-15) BUN (7-18) mg/dL Creatinine (0.7-1.3) mg/dL Est Cr Clr Drug Dosing mL/min Estimated GFR (MDRD) (>60) mL/min BUN/Creatinine Ratio (14-18) Glucose (80-115) mg/dL POC Glucose 120 H (80-115) mg/dL Calcium (8.5-10.1) mg/dL Magnesium (1.8-2.4) mg/dl C-Reactive Protein (<1.0) mg/dL Blood Type Gel Antibody Screen Crossmatch Med Orders - Current: Current Medications Allopurinol (Zyloprim) 300 mg PO DAILY [facility] Last Admin: 07/26/18 08:34 Dose: 300 mg Dextrose/Water (Dextrose 50% In Water) 50 ml IVPUSH ASDIRECTED PRN PRN Reason: Hypoglycemia Famotidine (Pepcid) 40 mg PO DAILY [facility] Last Admin: 07/26/18 08:33 Dose: 40 mg Sodium Chloride (Normal Saline) 250 mls @ 100 mls/hr IV ASDIRECTED [facility] Last Admin: 07/26/18 11:21 Dose: 100 mls/hr Insulin Human Lispro (Humalog) 0 unit SUBCUT QIDACANDBED [facility]; Protocol Last Admin: 07/26/18 11:21 Dose: Not Given Metoprolol Tartrate (Lopressor) 12.5 mg PO BID [facility] Last Admin: 07/26/18 08:33 Dose: 12.5 mg Cartia Xt 120 Mg (Caps*Pt Own Med*) 0 each PO BID [facility] Last Admin: 07/26/18 08:34 Dose: 1 each Potassium Chloride (Klor-Con 10) 0 meq PO ONETIME ONE Stop: 07/26/18 12:16 Sucralfate (Carafate) 1 gm PO QIDACANDBED [facility] Last Admin: 07/26/18 11:00 Dose: 1 gm Temazepam (Restoril) 7.5 mg PO BEDTIME PRN PRN Reason: Insomnia Warfarin Sodium (Pharmacy To Dose - Warfarin) 1 dose .XX ASDIRECTED [facility] Warfarin Sodium (Coumadin) 5 mg PO ONETIME ONE Stop: 07/26/18 18:01 Discontinued Medications Diltiazem HCl (Cardizem Cd) 120 mg PO BID [facility] Lidocaine HCl (Xylocaine-Mpf 1%) Confirm Administered Dose 6 mls @ as directed .ROUTE .STK-MED ONE Stop: 07/24/18 08:10 Sodium Chloride (Normal Saline) Confirm Administered Dose 250 mls @ as directed .ROUTE .STK-MED ONE Stop: 07/26/18 11:06 Last Admin: 07/26/18 11:21 Dose: Not Given Phytonadione (Aquamephyton) 5 mg PO ONETIME ONE Stop: 07/23/18 21:34 Last Admin: 07/23/18 21:56 Dose: 5 mg Phytonadione (Aquamephyton) 5 mg PO ONETIME ONE Stop: 07/24/18 09:12 Last Admin: 07/24/18 09:45 Dose: 5 mg Polyethylene Glycol/Electrolytes (Golytely) 4,000 ml PO ONETIME ONE Stop: 07/23/18 13:02 Last Admin: 07/23/18 16:19 Dose: Not Given Polyethylene Glycol/Electrolytes (Golytely) 4,000 ml PO ONETIME ONE Stop: 07/23/18 17:01 Last Admin: 07/23/18 17:58 Dose: 4,000 ml Potassium Chloride (Klor-Con M20) 60 meq PO ONETIME ONE Stop: 07/26/18 09:23 Propofol (Diprivan 20 Ml) Confirm Administered Dose 200 mg .ROUTE .STK-MED ONE Stop: 07/24/18 08:11 Warfarin Sodium (Coumadin) 5 mg PO ONETIME ONE Stop: 07/25/18 18:01 Last Admin: 07/25/18 18:06 Dose: Not Given - Exam Quality Assessment: Reports: DVT Prophylaxis General: Reports: Alert, Oriented, Cooperative, No Acute Distress HEENT: Reports: Pupils Equal, Pupils Reactive, EOMI Neck: Reports: Trachea Midline, No JVD Lungs: Reports: Normal Respiratory Effort Cardiovascular: Reports: Regular Rate, Regular Rhythm, Murmurs GI/Abdominal Exam: Normal Bowel Sounds, Soft, Non-Tender, No Organomegaly, No Distention (Male) Exam: Deferred Rectal (Males) Exam: Deferred Back Exam: Reports: Normal Inspection Extremities: Normal Inspection, Non-Tender, Normal Capillary Refill Skin: Reports: Warm Neurological: Reports: No New Focal Deficit, Normal Gait, Normal Speech Psy/Mental Status: Reports: Alert, Normal Affect, Normal Mood
[2018-07-26] MEDS ORDERED: POTASSIUM CHLORIDE 10 MEQ PO ONE (12:15)
[2018-07-26] MEDS ORDERED: Furosemide 20 MG/2 ML VIAL IVPUSH ONE (12:18)
[2018-07-26] MEDS ORDERED: Warfarin 5 MG Tab PO ONE (18:00)
[2018-07-27] MEDS ORDERED: POTASSIUM CHLORIDE 10 MEQ PO SCH (09:00)
== END 2018-07-26 16:05 | disposition home or self-care (01) ==
LOC: JD.ED 10:22 → JD.MS 12:14 → UNDOADMOB 12:14 → JD.MS 12:16
PROVIDERS: ADMIT Internal Medicine Cardiovascular Disease; ATTEND Internal Medicine Cardiovascular Disease
DX: K25.4 Chronic or unspecified gastric ulcer with hemorrhage (principal); K57.31 Diverticulosis of large intestine without perforation or abscess with bleeding; R79.1 Abnormal coagulation profile; I10 Essential (primary) hypertension; I48.0 Paroxysmal atrial fibrillation; I25.10 Atherosclerotic heart disease of native coronary artery without angina pectoris; E11.9 Type 2 diabetes mellitus without complications; E78.00 Pure hypercholesterolemia, unspecified; M10.9 Gout, unspecified; Z95.2 Presence of prosthetic heart valve; Z87.891 Personal history of nicotine dependence; Z79.01 Long term (current) use of anticoagulants; Z79.82 Long term (current) use of aspirin; Z79.84 Long term (current) use of oral hypoglycemic drugs; Z79.899 Other long term (current) drug therapy
CPT/HCPCS: 36415; 36430; 43235; 45378; 80048; 82962; 83036; 83605; 83735; 85018; 85025; 85610; 86140; 86850; 86900; 86901; 86922; 97161; 97165; 99285; A9270; J2001; J2704; J7050; P9016; 00813